=== PATIENT | male | born 1990 | race Asian ===

== ENCOUNTER 2021-02-03 20:51 | Emergency (ER) | payer OTHER, SELFPAY ==
[2021-02-03 21:46] VITALS: BP 121/79; PULSE 83; RESP 16; TEMP 36.5; O2SAT 96; BMI 31.3
[2021-02-03 22:50] VITALS: BP 129/84; PULSE 72; RESP 16; TEMP 36.3; O2SAT 98
[2021-02-03 23:46] VITALS: RESP 20
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
== END 2021-02-04 00:12 | disposition home or self-care (01) ==
PROVIDERS: Emergency Provider Internal Medicine
DX: S29.9XXA Unspecified injury of thorax, initial encounter (principal); Y04.2XXA Assault by strike against or bumped into by another person, initial encounter; R10.9 Unspecified abdominal pain; Y93.89 Activity, other specified; Y92.9 Unspecified place or not applicable; Y99.0 Civilian activity done for income or pay
CPT/HCPCS: 99282; 99284